=== PATIENT | male | born 1970 | race Caucasian/White ===

== ENCOUNTER 2016-09-05 10:35 | Emergency (ER) | payer OTHER ==
[2016-09-05 10:45] VITALS: TEMP 97.8; O2SAT 98
[2016-09-05 12:24] VITALS: RESP 16
[2016-09-05 14:14] VITALS: BP 126/84; PULSE 79
--- NOTE | 2016-09-05 14:45 | C.PDOC ---
History Of Present Illness 46 y/o male presents to the ED with complains of dry throat, palpitations x1 year. Pt saw PMD for same 1 year ago. Denies SOB, syncope, chest pain or any other associated symptoms. Time Seen by Provider: 09/05/16 11:02 Chief Complaint (Nursing): Shortness Of Breath History Per: Patient History/Exam Limitations: no limitations Onset/Duration Of Symptoms: Days Current Symptoms Are (Timing): Still Present Severity: Mild Recent travel outside of the [place]: No Past Medical History Reviewed: Historical Data, Nursing Documentation, Vital Signs Vital Signs: Last Vital Signs Temp 97.8 F 09/05/16 14:13 Pulse 79 09/05/16 14:13 Resp 16 09/05/16 14:13 BP 126/84 09/05/16 14:13 Pulse Ox 98 09/05/16 14:49 - Medical History PMH: Gastritis, Hypercholesterolemia Surgical History: Appendectomy Family History: States: Unknown Family Hx - Social History Hx Tobacco Use: No Hx Alcohol Use: No Hx Substance Use: No - Immunization History Hx Tetanus Toxoid Vaccination: No Hx Influenza Vaccination: No Hx Pneumococcal Vaccination: No Review Of Systems Except As Marked, All Systems Reviewed And Found Negative. Constitutional: Negative for: Fever, Chills ENT: Positive for: Other (dry throat) Cardiovascular: Positive for: Palpitations. Negative for: Chest Pain Respiratory: Negative for: Shortness of Breath Physical Exam - Physical Exam Appears: Non-toxic, No Acute Distress Skin: Warm, Dry, No Rash Head: Atraumatic, Normacephalic Nose: Normal Oral Mucosa: Moist Throat: Normal, No Erythema, No Exudate, Other (Uvula WNL) Neck: Normal, Normal ROM, Supple Chest: Symmetrical, No Tenderness Cardiovascular: Rhythm Regular, No Murmur Respiratory: Normal Breath Sounds, No Accessory Muscle Use, No Rales, No Rhonchi , No Wheezing Gastrointestinal/Abdominal: Normal Exam, Soft, No Tenderness Extremity: Bilateral: Atraumatic Neurological/Psych: Oriented x3, Normal Speech, Normal Cognition, Normal Motor, Normal Sensation ED Course And Treatment ECG: Interpreted By Me, Viewed By Me ECG Rhythm: Sinus Rhythm ECG Interpretation: Normal Rate From EC (BPM) O2 Sat by Pulse Oximetry: 98 (room air) Pulse Ox Interpretation: Normal Medical Decision Making Medical Decision Making: Advised patient to follow up with PMD for further evaluation. Disposition Counseled Patient/Family Regarding: Diagnosis, Need For Followup - Disposition Disposition: HOME/ ROUTINE Disposition Time: 12:00 Condition: GOOD Instructions: Palpitations (ED) - Clinical Impression Clinical Impression: Palpitations, Dry throat - Scribe Statement The provider has reviewed the documentation as recorded by the Jeancarlosibe Avelino Leos Provider Attestation: All medical record entries made by the Jeancarlosibe were at my direction and personally dictated by me. I have reviewed the chart and agree that the record accurately reflects my personal performance of the history, physical exam, medical decision making, and the department course for this patient. I have also personally directed, reviewed, and agree with the discharge instructions and disposition.
--- NOTE | 2016-09-11 20:53 | CARD ---
APPROVED REPORT EKG Measurement Heart [id number] <Conclusion> Poor data quality, interpretation may be adversely affected Normal sinus rhythm Normal ECG
== END 2016-09-05 14:14 | disposition home or self-care (01) ==
LOC: C.ER 10:35
DX: R00.2 Palpitations (principal); J39.2 Other diseases of pharynx